=== PATIENT | male | born 1965 | race Caucasian/White ===

== ENCOUNTER 2023-01-23 15:20 | Emergency (ER) | payer BC, SELFPAY ==
--- NOTE | ~2023-01-23 | XR_ITS ---
EXAMINATION: XR KNEE, LEFT CLINICAL INFORMATION: Pain after falling COMPARISON: None available. TECHNIQUE: Four views of the left knee. FINDINGS: Knee prosthesis intact. No plain film evidence for loosening. No fracture, dislocation or destructive lesion or joint effusion. XR/XR knee LT 4V IMPRESSION: Unremarkable exam.
--- NOTE | ~2023-01-23 | XR_ITS ---
EXAMINATION: XR WRIST, RIGHT XR HAND, RIGHT CLINICAL INFORMATION: Pain after falling COMPARISON: None available. TECHNIQUE: PA, lateral, and oblique views of the right wrist and PA, lateral, and oblique views of the right hand FINDINGS: Right wrist and hand: Postsurgical change distal radius noted. Hardware intact. Carpal alignment preserved. No fracture, dislocation or destructive process. MCP joints preserved. There is degenerative change in the second through fifth DIP joints first IP joint. XR/XR hand wrist RT IMPRESSION: No acute abnormalities.
--- NOTE | ~2023-01-23 | XR_ITS ---
EXAMINATION: XR WRIST, LEFT XR HAND, LEFT CLINICAL INFORMATION: Pain after falling COMPARISON: None available. TECHNIQUE: PA, lateral, and oblique views of the left wrist and PA, lateral, and oblique views of the left hand FINDINGS: There is moderate degenerative change at the first CMC joint. Carpal alignment normal. The distal radius and ulna are intact. Remainder of the hand does appear intact without fracture, dislocation or destructive process. XR/XR hand wrist LT IMPRESSION: No acute abnormalities.
--- NOTE | ~2023-01-23 | XR_ITS ---
EXAMINATION: XR FOREARM, RIGHT CLINICAL INFORMATION: Pain after falling COMPARISON: None available. TECHNIQUE: AP and lateral views of the right forearm were obtained. FINDINGS: Surgical hardware secures the distal radius. The remainder of the forearm is intact. No fracture or destructive process. Included coverage of the elbow and wrist shows no acute abnormalities. XR/XR forearm RT 2V IMPRESSION: Intact radius and ulna.
[2023-01-23 15:34] VITALS: BP 144/83; PULSE 80; RESP 16; TEMP 36.8; O2SAT 95; BMI 36.9
--- NOTE | 2023-01-23 15:38 | ED.FALL ---
HPI - Fall General Chief Complaint: Fall Stated Complaint: fall at work, R wrist pain Time Seen by Provider: 01/23/23 16:48 Source: patient Mode of arrival: ambulatory Limitations: no limitations History of Present Illness HPI Narrative: 57 yo male with history of gout, HTN, right hand dominant here after trip and fall at work catching himself with both hands and landing on left knee. NO head strike or LOC. +right FA pain, left hand pain, left knee pain. No associated weakness, numbness,tingling of the extremities, Patient WB Related Data Allergies Allergy/AdvReac Type Severity Reaction Status Date / Time No Known Allergies Allergy Verified 01/23/23 15:41 Review of Systems Review of Systems: Yes all other systems are reviewed and are negative Constitutional: Constitutional: Reports no additional constitutional complaints, Denies body ache(s), Denies chills, Denies fever(s), Denies headache(s) and Denies weakness Eyes: Eyes: Reports no additional eye complaints and Denies change in vision ENT: Reports system reviewed and no additional complaints, except as documented, Denies dizziness, Denies headache(s), Denies nasal congestion, Denies nasal discharge and Denies neck pain Cardiovascular: Cardiovascular: Reports no additional cardiovascular complaints, Denies chest pain, Denies leg edema and Denies dyspnea Respiratory: Respiratory: Reports no additional respiratory complaints, Denies cough and Denies dyspnea Gastrointestinal: Gastrointestinal: Reports no additional gastrointestinal complaints, Denies abdominal pain, Denies diarrhea, Denies nausea and Denies vomiting Genitourinary: Genitourinary: Denies urinary incontinence Musculoskeletal: Musculoskeletal: Reports no additional musculoskeletal complaints, Denies back pain, Reports arthralgias, Reports joint swelling, Denies neck pain, Denies numbness and Denies tingling Integumentary/Breasts: Skin/Breast: Reports system reviewed and no additional complaints, except as docu and Denies rash Neurologic: Reports system reviewed and no additional complaints, except as documented, Denies Abnormal speech present, Denies dizziness, Denies headache(s), Denies numbness, Denies tingling and Denies weakness PMFSH Past Medical History Attestation statement: The following information was validated with the patient. Source: old records reviewed and nursing notes reviewed Physical Exam Vital Signs: Vital Signs: Last Vital Signs Temp 98.3 F 01/23/23 16:49 Pulse 68 01/23/23 16:49 Resp 18 01/23/23 16:49 BP 150/74 H 01/23/23 16:49 Pulse Ox 97 01/23/23 16:49 O2 Del Method Room Air 01/23/23 16:49 BMI result Body Mass Index 36.9 Const: General: cooperative, healthy appearing, comfortable and no acute distress Orientation/consciousness: patient oriented x3 Limitations: no limitations HEENT: Head: Yes normal to inspection Ears: hearing grossly normal bilaterally General nose exam: Normal external nose present Face and sinus: Yes normal facial exam Mouth: Normal oral and palatal mucosa present Throat: Yes posterior oropharynx normal Eyes: General: appearance normal, both eyes and all related structures Pupils: Equal, round and reactive pupils present Neck: Neck: Yes normal visual inspection Chest: Chest palpation & inspection: normal inspection of the chest Resp: Effort & Inspection: normal respiratory effort Auscultation: clear to auscultation bilaterally Cardio: Rate: regular rate Rhythm: regular rhythm Peripheral pulses: Peripheral pulses 2+ throughout GI: Inspection: Yes normal to inspection Palpation (GI): Soft to palpation and nontender Auscultation: normal bowel sounds Back/Spine/Pelvis: Thoracic/Lumbar Spine: thoracic and lumbar spine normal to inspection Skin: General skin exam: no rashes or lesions noted Neuro: General: patient oriented x3, no focal motor deficits and normal sensation to monofilament Cranial nerves: Yes Equal, round and reactive pupils present Cognition (Neuro): normal cognition Speech: No Abnormal speech present Gait exam (Neuro): Normal gait present Motor exam (neuro): 5/5 motor strength present throughout Extrem: Other: On exam there is tenderness over the right dorsal wrist but patient has intact active and passive range of motion of the wrist, hand, forearm, elbow. There is bruising over the left thenar. There is full active and passive range of motion of the left hand and wrist. Normal sensation to both upper extremity Normal ulnar and radial pulses bilaterally. There is mild tenderness the left anterior knee with intact active and passive range of motion. Normal distal sensation. Normal DP and PT pulses. No posterior knee pain. No swelling or bruising noted. General: Yes normal to inspection Course Course Course Narrative: This is a rapid medical exam. Deferred additional HPI, ROS, PE to primary provider. 57 yo male with history of gout, HTN, right hand dominant here after trip and fall at work catching himself with both hands and landing on left knee. NO head strike or LOC. +FA right pain, left thenar pain, left knee pain Will obtain x-rays VSS Medical Decision Making Medical Decision Making MDM Narrative: 57 yo male with history of gout, HTN, right hand dominant here after trip and fall at work catching himself with both hands and landing on left knee. NO head strike or LOC. +right FA pain, left hand pain, left knee pain. No associated weakness, numbness,tingling of the extremities, Patient WB' On exam there is tenderness over the right dorsal wrist but patient has intact active and passive range of motion of the wrist, hand, forearm, elbow. There is bruising over the left thenar. There is full active and passive range of motion of the left hand and wrist. Normal sensation to both upper extremity Normal ulnar and radial pulses bilaterally. There is mild tenderness the left anterior knee with intact active and passive range of motion. Normal distal sensation. Normal DP and PT pulses. No posterior knee pain. No swelling or bruising noted. Will check x-rays Differential Diagnosis Differential Diagnoses: The differential diagnosis associated with the presentation includes contusion, sprain, strain low concern for fx, dislocation, vascular injury Admission/Observation Consideration of admission/observation: Escalation of care including admission/observation considered low concern for fx, dislocation, vascular injury requiring advanced imaging, urgent orthopedic consultation Independent Interpretation I performed an independent interpretation of an: Plain X-Ray Interpretation: I independently reviewed the x-ray and agree with Radiology report Radiology Impression Discussion of test interpretation with radiology: I have reviewed the radiologist's reading. Radiologist Impression: [address] [address] XRay Report Signed Patient: Brandt Cobos MR#: [id number] : 1965 Acct:[id number] Age/Sex: 57 / M ADM Date: 01/23/23 Loc: HO.ED Attending Dr: Ordering Physician: Alexa Torres NP Date of Service: 01/23/23 Procedure(s): XR knee LT 4V Accession Number(s): [id number] cc: BLOSSOM NEVAREZ MD; Alexa Torres NP~ EXAMINATION: XR KNEE, LEFT CLINICAL INFORMATION: Pain after falling COMPARISON: None available. TECHNIQUE: Four views of the left knee. FINDINGS: Knee prosthesis intact. No plain film evidence for loosening. No fracture, dislocation or destructive lesion or joint effusion. XR/XR knee LT 4V IMPRESSION: Unremarkable exam. [address] [address] XRay Report Signed Patient: Brandt Cobos MR#: [id number] : 1965 Acct:[id number] Age/Sex: 57 / M ADM Date: 01/23/23 Loc: .ED Attending Dr: Ordering Physician: Alexa Torres NP Date of Service: 01/23/23 Procedure(s): XR hand wrist LT Accession Number(s): [id number] cc: BLOSSOM NEVAREZ MD; Alexa Torres NP~ EXAMINATION: XR WRIST, LEFT XR HAND, LEFT CLINICAL INFORMATION: Pain after falling COMPARISON: None available. TECHNIQUE: PA, lateral, and oblique views of the left wrist and PA, lateral, and oblique views of the left hand FINDINGS: There is moderate degenerative change at the first CMC joint. Carpal alignment normal. The distal radius and ulna are intact. Remainder of the hand does appear intact without fracture, dislocation or destructive process. XR/XR hand wrist LT IMPRESSION: No acute abnormalities. [address] [address] XRay Report Signed Patient: Brandt Cobos MR#: [id number] : 1965 Acct:[id number] Age/Sex: 57 / M ADM Date: 01/23/23 Loc: .ED Attending Dr: Ordering Physician: Alexa Torres NP Date of Service: 01/23/23 Procedure(s): XR forearm RT 2V Accession Number(s): [id number] cc: BLOSSOM NEVAREZ MD; Alexa Torres NP~ EXAMINATION: XR FOREARM, RIGHT CLINICAL INFORMATION: Pain after falling COMPARISON: None available. TECHNIQUE: AP and lateral views of the right forearm were obtained. FINDINGS: Surgical hardware secures the distal radius. The remainder of the forearm is intact. No fracture or destructive process. Included coverage of the elbow and wrist shows no acute abnormalities. XR/XR forearm RT 2V IMPRESSION: Intact radius and ulna. Independent Historian Clinical information obtained from an independent historian. History obtained from or confirmed by: Spouse Tests considered The following testing was considered but not selected: concern for fx, dislocation, vascular injury requiring advanced imaging Discharge Plan Discharge Clinical Impression: Strain of right wrist, Contusion of hand, left, Contusion of knee, left Patient Disposition: Home, Self-Care Instructions: Wrist Injury (ED), Contusion in Adults (ED) Additional Instructions: Ice, rest Motrin or Tylenol for pain as needed Referrals: Xander Clark MD [Physician] - 1 week Stand Alone Forms: Work/School Release
[2023-01-23 16:49] VITALS: BP 150/74; PULSE 68; RESP 18; TEMP 36.8; O2SAT 97
== END 2023-01-23 17:03 | disposition home or self-care (01) ==
LOC: HO.ED 17:00
PROVIDERS: Emergency Provider Emergency Medicine; PCP Internal Medicine Cardiovascular Disease
DX: S66.911A Strain of unspecified muscle, fascia and tendon at wrist and hand level, right hand, initial encounter (principal); S60.222A Contusion of left hand, initial encounter; S80.02XA Contusion of left knee, initial encounter; W01.0XXA Fall on same level from slipping, tripping and stumbling without subsequent striking against object, initial encounter; Y93.9 Activity, unspecified; Y92.9 Unspecified place or not applicable; Y99.0 Civilian activity done for income or pay; M79.642 Pain in left hand; I10 Essential (primary) hypertension; M10.9 Gout, unspecified
CPT/HCPCS: 73090; 73110; 73130; 73564; 99282; 99283